=== PATIENT | male | born 1960 | race Caucasian/White ===

== ENCOUNTER 2021-07-18 23:44 | Emergency (ER) | payer BC ==
[~2021-07-18] VITALS: Ht 188 cm; Wt 127.3 kg
[2021-07-18 23:49] VITALS: BP 159/89
[2021-07-19] MEDS ORDERED: ketorolac trometh. 30mg/ml inj. IM ONE (00:20)
[2021-07-19] MEDS ORDERED: HYDROcodone/acetaminophen 5mg/325mg tablet PO ONE (00:45)
[2021-07-19] MEDS ORDERED: HYDR-3965 PO (00:46)
== END 2021-07-19 02:33 | disposition home or self-care (01) ==
LOC: ER 23:44
DX: M25.511 Pain in right shoulder (principal); X58.XXXA Exposure to other specified factors, initial encounter; Y93.89 Activity, other specified; Y92.89 Other specified places as the place of occurrence of the external cause; Y99.8 Other external cause status
CPT/HCPCS: 73030; 96372; 99283; J1885